=== PATIENT | male | born 1950 | race Caucasian/White ===

== ENCOUNTER → 2018-11-23 | Outpatient (CLI) | payer MEDICARE ==
--- NOTE | 2018-11-23 15:52 | XR ---
EXAMINATION TYPE: XR chest 2V DATE OF EXAM: 11/23/2018 COMPARISON: NONE HISTORY: Emphysema and COPD. TECHNIQUE: Frontal and lateral views of the chest are obtained. FINDINGS: Underlying emphysematous change is confirmed with flattened hemidiaphragms and increased re trosternal airspace on lateral view. There is no focal air space opacity, pleural effusion, or pneumo thorax seen. The cardiac silhouette size is within normal limits with atherosclerotic change in aort ic knob. The osseous structures are intact. IMPRESSION: Chronic emphysematous change without acute pulmonary process.
== END ==
LOC: RADXRYALE 15:00
PROVIDERS: ATTEND Internal Medicine
DX: J43.9 Emphysema, unspecified (principal)
CPT/HCPCS: 71046

== ENCOUNTER → 2022-09-13 | Outpatient (CLI) | payer MEDICARE ==
[2022-09-13 11:44] LABS: African American GFR (CKD) >90 (>60 ml/min/1.73 sqM); Blood Urea Nitrogen 15 mg/dL (9-20); Non-African American GFR(CKD) >90 (>60 ml/min/1.73 sqM)
--- NOTE | 2022-09-13 16:31 | CT ---
EXAMINATION TYPE: CT urogram wo/w con DATE OF EXAM: 09/13/2022 COMPARISON: None INDICATION: heamturia x1-2 months DLP: 3368 mGycm, Automated exposure control for dose reduction was used. CONTRAST: 100 mL of Isovue 300. Study performed without Oral Contrast TECHNIQUE: Axial images were obtained from above the diaphragm to the pubic rami in the axial plane a t 5 mm thick sections. Reconstructed images are reviewed on the computer in the coronal plane. FINDINGS: Limited CT sections are obtained the lung bases. The lung bases are clear. CT ABDOMEN: Liver: Normal Spleen: Normal Pancreas: Normal Adrenal glands: The adrenal glands are normal. Gallbladder: Normal Kidneys: No masses are evident. No hydronephrosis is present. There is a 2.2 cm cyst on the posteri or mid right kidney. Delayed images were obtained through the kidneys, which remain unremarkable. No renal stones are evident Longer delayed images were obtained. Three-D reconstructed images through t he renal collecting system was performed by the technologist on a separate computer. No hydronephrosi s or hydroureter is evident. Three-D reconstructed images appear unremarkable. Aorta: Vascular calcification is within the aorta. Inferior vena cava: Normal. CT PELVIS: Loops of bowel within the abdomen and pelvis are normal. The study is without oral contrast limit ing bowel evaluation. Appendix: Normal as visualized. Urinary bladder: Normal. Genitourinary structures: Prostate is very prominent and some impression on the inferior bladder. Osseous structures: No suspicious lytic or sclerotic lesions. IMPRESSIONS: 1. Prominent prostate with inferior urinary bladder impression.
== END | disposition home or self-care (01) ==
LOC: RADCTMAIN 10:20
PROVIDERS: ATTEND Urology
DX: R31.1 Benign essential microscopic hematuria (principal)
CPT/HCPCS: 82565; 84520; 74178; 36415; 74400; Q9967

== ENCOUNTER 2025-05-29 08:15 | Day surgery (SDC) | payer MEDICARE ==
[2025-05-29] MEDS: LACTATED RINGERS 1,000 ML IV SCH (08:42)
[2025-05-29] MEDS: IV FLUID CONTINUATION 1,000 ML IV ONE (08:42)
[2025-05-29 08:45] VITALS: TEMP 97.8
[2025-05-29 08:48] LABS: Glucose,Whole Blood 123 mg/dL (70-110)
--- NOTE | 2025-05-29 09:36 | P.GSHP ---
History of Present Illness H&P Date: 05/29/25 CHIEF COMPLAINT: Dysphagia and colon screen HISTORY OF PRESENT ILLNESS: The patient is a 74-year-old male who presents with dysphagia, gastroesophageal reflux disease and need for colon screen. Upper and lower endoscopy were offered for further evaluation and management. PAST MEDICAL HISTORY: Please see list. PAST SURGICAL HISTORY: Please see list. MEDICATIONS: Please see list. ALLERGIES: Please see list. SOCIAL HISTORY: No illicit drug use FAMILY HISTORY: No reports of Crohn disease or ulcerative colitis. REVIEW OF ORGAN SYSTEMS: CONSTITUTIONAL: No reports of fevers or chills. GI: Denies any blood in stools or constipation. PHYSICAL EXAM: VITAL SIGNS: Stable GENERAL: Well-developed pleasant in no acute distress. HEENT: No scleral icterus. Extraocular movements grossly intact. Moist buccal mucosa. NECK: Supple without lymphadenopathy. CHEST: Unlabored respirations. Equal bilateral excursions. CARDIOVASCULAR: Regular rate and rhythm. Distal 2+ pulses. ABDOMEN: Soft, nondistended. MUSCULOSKELETAL: No clubbing, cyanosis, or edema. ASSESSMENT: 1. Dysphagia and gastroesophageal reflux disease 2. Colon screen. PLAN: 1. Recommend proceeding with an upper and lower endoscopy Past Medical History Past Medical History: COPD, Diabetes Mellitus, GERD/Reflux, Hyperlipidemia, Hypertension, Osteoarthritis (OA), Prostate Disorder Additional Past Medical History / Comment(s): positive cologuard, BPH History of Any Multi-Drug Resistant Organisms: None Reported Past Surgical History: Orthopedic Surgery Additional Past Surgical History / Comment(s): surg on left foot/ankle to repair tendons Past Anesthesia/Blood Transfusion Reactions: No Reported Reaction Smoking Status: Current every day smoker - Past Family History Father Family Medical History: Chest Pain / Angina Additional Family Medical History / Comment(s): esophageal, had open heart surg. for congenital defect Medications and Allergies Home Medications Medication Instructions Recorded Confirmed Type Albuterol Inhaler [Ventolin Hfa 1 - 2 puff INHALATION Q6H PRN 05/28/25 05/29/25 History Inhaler] Atorvastatin Calcium [Lipitor] 40 mg PO HS 05/28/25 05/29/25 History Budesonide-Formot 160-4.5 Mcg 2 puff INHALATION BID 05/28/25 05/29/25 History [Symbicort 160-4.5 Mcg Inhaler] Ipratropium-Albuterol Nebulize 3 ml INHALATION DIRECTED PRN 05/28/25 05/29/25 History [Duoneb 0.5 mg-3 mg/3 ml Soln] Omeprazole [PriLOSEC] 20 mg PO DAILY PRN 05/28/25 05/29/25 History Tamsulosin HCl [Flomax] 0.4 mg PO BID 05/28/25 05/29/25 History amLODIPine [Norvasc] 5 mg PO DAILY 05/28/25 05/29/25 History lisinopriL 40 mg PO DAILY 05/28/25 05/29/25 History metFORMIN HCL [Glucophage XR] 750 mg PO DAILY 05/28/25 05/29/25 History Allergies Allergy/AdvReac Type Severity Reaction Status Date / Time No Known Allergies Allergy Verified 05/29/25 08:25 Surgical - Exam Vital Signs Temp Pulse Resp BP Pulse Ox 97.8 F 71 22 137/60 94 L 05/29/25 08:33 05/29/25 08:33 05/29/25 08:33 05/29/25 08:33 05/29/25 08:33 Results - Labs Abnormal Lab Results - Last 24 Hours (Table) 05/29/25 Range/Units 08:41 POC Glucose (mg/dL) 123 H (70-110) mg/dL
[2025-05-29] MEDS ORDERED: PROPOFOL 10 MG/ML 20 ML VIAL IV ONE (09:37)
--- NOTE | 2025-05-29 10:50 | P.PCN ---
Date of Procedure: 05/29/25 Description of Procedure: PREOPERATIVE DIAGNOSIS: Abnormal Cologuard Family history gastrointestinal malignancies POSTOPERATIVE DIAGNOSIS: Ascending colon mass Tubular adenoma ascending colon Tubular adenoma hepatic flexure Tubular adenoma transverse colon Sigmoid diverticulosis Internal hemorrhoids, grade 3 OPERATION: Colonoscopy to the ileocecal valve and appendiceal orifice, cecum Colonoscopy with hot snare polypectomy Colonoscopy with injection of Nisha ink, ascending colon SURGEON: Amie Santos MD. ANESTHESIA: MAC. INDICATIONS: The patient is an 74-year-old male who presents family history of malignant colon polyps and abnormal Cologuard. This is his first colonoscopy. Benefits and risks were described and informed consent was obtained. DESCRIPTION OF PROCEDURE: The patient had undergone Suprep. The patient had been brought into the operating room and laid in the left lateral decubitus position. After adequate intravenous sedation, the rectum was examined with 2% lidocaine jelly. The prostate was unremarkable. External hemorrhoids were encountered. The rectal tone was within normal limits. No lesions were palpated in the rectal vault. An Olympus colonoscope was advanced until the cecum, ileocecal valve and appendiceal orifice were clearly viewed. The prep was good. Sigmoid diverticulosis was encountered. Colonic polyps were found and removed. No evidence of focal colitis was found. Retroflexion of the scope demonstrated grade 3 internal hemorrhoids without active bleeding or inflammation. The colon was desufflated. The patient had tolerated the procedure well. Withdrawal time was over 6 minutes. FINDINGS: Aronchick preparation quality scale 1+ (1-5) Internal hemorrhoids, grade 3 with recent inflammation and bleeding External hemorrhoids, grade 4. No arteriovenous malformations. Sigmoid diverticulosis Injection and Nisha ink 2 cc ascending colon mass, resection, piecemeal Removal of 4 polyps: - Snare polypectomy ascending colon, 10 mm tubulovillous adenoma - Snare polypectomy ascending colon mass, 30 mm, piecemeal resection - Snare polypectomy hepatic flexure colon, 8 mm villous adenoma - Snare polypectomy transverse colon, 6 mm villous tubulovillous adenoma No focal colitis. RECOMMENDATIONS: Due to large piecemeal resection of large ascending colon mass, repeat colonoscopy with snare polypectomy 3 months, August 2025 Plan - Discharge Summary Discharge Rx Participant: No New Discharge Prescriptions: Continue metFORMIN HCL [Glucophage XR] 750 mg PO DAILY lisinopriL 40 mg PO DAILY amLODIPine [Norvasc] 5 mg PO DAILY Tamsulosin HCl [Flomax] 0.4 mg PO BID Ipratropium-Albuterol Nebulize [Duoneb 0.5 mg-3 mg/3 ml Soln] 3 ml INHALATION DIRECTED PRN PRN Reason: Shortness Of Breath Atorvastatin Calcium [Lipitor] 40 mg PO HS Budesonide-Formot 160-4.5 Mcg [Symbicort 160-4.5 Mcg Inhaler] 2 puff INHALATION BID Albuterol Inhaler [Ventolin Hfa Inhaler] 1 - 2 puff INHALATION Q6H PRN PRN Reason: Shortness Of Breath Discontinued Omeprazole [PriLOSEC] 20 mg PO DAILY PRN PRN Reason: gerd Discharge Medication List Albuterol Inhaler [Ventolin Hfa Inhaler] 1 - 2 puff INHALATION Q6H PRN 05/28/25 [History] Atorvastatin Calcium [Lipitor] 40 mg PO HS 05/28/25 [History] Budesonide-Formot 160-4.5 Mcg [Symbicort 160-4.5 Mcg Inhaler] 2 puff INHALATION BID 05/28/25 [History] Ipratropium-Albuterol Nebulize [Duoneb 0.5 mg-3 mg/3 ml Soln] 3 ml INHALATION DIRECTED PRN 05/28/25 [History] Tamsulosin HCl [Flomax] 0.4 mg PO BID 05/28/25 [History] amLODIPine [Norvasc] 5 mg PO DAILY 05/28/25 [History] lisinopriL 40 mg PO DAILY 05/28/25 [History] metFORMIN HCL [Glucophage XR] 750 mg PO DAILY 05/28/25 [History] Follow up Appointment(s)/Referral(s): Amie Santos MD [STAFF PHYSICIAN] - 06/25/25 11:30 am Patient Instructions/Handouts: Colorectal Polyps (GEN), Esophageal Dilation (DC) Activity/Diet/Wound Care/Special Instructions: Repeat colonoscopy 3 months, August 2025 Discharge Disposition: HOME SELF-CARE
[2025-05-29 11:03] VITALS: BP 140/76; PULSE 72; RESP 20
--- NOTE | 2025-05-29 11:11 | P.PCN ---
Date of Procedure: 05/29/25 Description of Procedure: PREOPERATIVE DIAGNOSIS: Dysphagia POSTOPERATIVE DIAGNOSIS: Upper esophageal stenosis Presbyesophagus Acute gastritis with bleeding OPERATION: Esophagogastroduodenoscopy with rigid dilator over the guidewire 57 Fr with dilation Esophagogastroduodenoscopy with cold forceps biopsies stomach/antrum, esophagus, duodenum SURGEON: Amie Santos MD ANESTHESIA: MAC. INDICATIONS: The patient is a 74-year-old male who presents with dysphagia. Benefits and risks of the procedure were described. Informed consent was obtained. DESCRIPTION: The patient was brought into the endoscopy suite and laid in the left lateral decubitus position. After a timeout was confirmed, the procedure was initiated. An Olympus gastroscope was passed into the posterior oropharynx where an upper esophageal stenosis was identified. The scope was passed down to the distal esophagus. To address the upper esophageal stenosis, rigid dilator over guidewire was selected. Next using an Cypriot rigid dilator, a guidewire was placed through the gastroscope. Next the scope was withdrawn. A 57-Belizean rigid Cypriot dilator was passed carefully along the posterior oropharynx to 45 cm and left in place for 2-3 minutes stretch. The dilator was withdrawn including the guidewire. The scope was reentered along the posterior oropharynx with no findings of full- thickness tear of the upper esophageal sphincter. Additional findings below. Within the stomach, severe acute gastritis with bleeding were identified along the body of the stomach with cold forceps biopsies obtained. The lower esophageal valve was evaluated with Hill grade 2 lower esophageal valve. LA grade B erosive esophagitis was identified. No full-thickness injury was encountered. The GI tract was desufflated. The patient tolerated the procedure well. FINDINGS: Upper esophageal stenosis dilated 57-Belizean rigid dilator Diaphragmatic hiatus at 40 cm from the incisors Squamocolumnar junction 41 cm from the incisors. Diaphragmatic hiatal hernia, 1 cm Severe gastritis along the gastric body and fundus with bleeding and cold forceps biopsies obtained Duodenitis with biopsies obtained LA grade B erosive esophagitis, biopsies obtained Hill grade 2 lower esophageal valve. RECOMMENDATIONS: Omeprazole 40 mg daily Recommend repeat upper endoscopy in 4 weeks
== END 2025-05-29 12:01 | disposition home or self-care (01) ==
LOC: ORWHC2ENDO 08:15
PROVIDERS: ATTEND Surgery Plastic and Reconstructive Surgery
DX: K29.50 Unspecified chronic gastritis without bleeding (principal); K31.89 Other diseases of stomach and duodenum; K44.9 Diaphragmatic hernia without obstruction or gangrene; K31.7 Polyp of stomach and duodenum; D12.2 Benign neoplasm of ascending colon; D12.3 Benign neoplasm of transverse colon; K21.9 Gastro-esophageal reflux disease without esophagitis; K22.2 Esophageal obstruction; K22.89 Other specified disease of esophagus; K57.30 Diverticulosis of large intestine without perforation or abscess without bleeding; K64.2 Third degree hemorrhoids; E11.9 Type 2 diabetes mellitus without complications; E78.5 Hyperlipidemia, unspecified; I10 Essential (primary) hypertension; J44.9 Chronic obstructive pulmonary disease, unspecified; M19.90 Unspecified osteoarthritis, unspecified site; Z79.51 Long term (current) use of inhaled steroids; Z79.84 Long term (current) use of oral hypoglycemic drugs; Z79.899 Other long term (current) drug therapy; Z80.0 Family history of malignant neoplasm of digestive organs
CPT/HCPCS: 88305; 45385; 43239; 43248; 45381; J2704; 44404